=== PATIENT | male | born 1985 | race Caucasian/White ===

== ENCOUNTER 2017-07-14 16:56 | Emergency (ER) | payer OTHER, MEDICAID ==
[~2017-07-14] VITALS: Ht 175.3 cm; Wt 72.1 kg
[2017-07-14] MEDS ORDERED: CIPRO500 MG PO (17:32)
[2017-07-14] MEDS ORDERED: CIPROFLOXIN HC2.5 M1 OPHTHALMIC (17:32)
[2017-07-14 17:46] VITALS: BP 109/63
== END 2017-07-14 17:47 | disposition home or self-care (01) ==
LOC: M.ERS 16:56
DX: H60.91 Unspecified otitis externa, right ear (principal); F17.200 Nicotine dependence, unspecified, uncomplicated; Z88.0 Allergy status to penicillin